=== PATIENT | male | born 1975 | race Asian ===

== ENCOUNTER 2017-03-18 13:13 | Inpatient (IN) | payer MEDICAID ==
[2017-03-18] VITALS (11 sets, daily range): BP systolic 129–155; BP diastolic 72–108
[~2017-03-18] VITALS: Ht 165.1 cm; Wt 84.3 kg
[2017-03-18 14:25] LABS: BASOPHILS # (AUTO) 0.02 K/uL (0.00-0.20); BASOPHILS % (AUTO) 0.3 % (0.0-2.0); EOSINOPHILS # (AUTO) 0.21 K/uL (0.00-0.70); EOSINOPHILS % (AUTO) 2.89 % (1.0-6.0); LYMPHOCYTES # (AUTO) 1.8 K/uL (1.0-4.8); LYMPHOCYTES % (AUTO) 25.4 % (22.0-44.0); MEAN CORPUSCULAR HEMOGLOBIN 16.8 pg (26.0-34.0); MEAN CORPUSCULAR HGB CONC 28.1 G/dL (31.0-37.0); MEAN CORPUSCULAR VOLUME 60 fL (80-100); MONOCYTES # (AUTO) 0.4 K/uL (0.1-1.0); MONOCYTES % (AUTO) 5.8 % (2.0-9.0); NEUTROPHILS # (AUTO) 4.7 K/uL (1.8-7.7); NEUTROPHILS % (AUTO) 65.7 % (40.0-70.0); PLATELET COUNT (AUTO) 625 K/uL (150-450); RED BLOOD CELL COUNT(AUTO) 2.85 MIL/uL (4.50-5.90); RED CELL DISTRIBUTION WIDTH 28.7 % (11.5-14.5); WHITE BLOOD COUNT (AUTO) 7.2 K/uL (4.5-11.0)
[2017-03-18 14:33] LABS: CALCIUM, TOTAL 8.5 mg/dL (8.8-10.5); CREATININE 1.36 mg/dL (0.60-1.30); POTASSIUM 3.5 mmol/L (3.5-5.1)
[2017-03-18 14:37] LABS: HEMATOCRIT 17.1 % (41-53); HEMOGLOBIN 4.8 g/dL (13.5-17.5)
[2017-03-18 14:38] LABS: ALBUMIN 3.4 g/dL (3.4-5.0); BILIRUBIN,TOTAL 0.3 mg/dL (0.1-1.0); TOTAL PROTEIN, SERUM 7.5 g/dL (6.4-8.2)
[2017-03-18] MEDS ORDERED: SODIUM CHLORIDE 0.9% 500 ML IV ONE (14:57)
[2017-03-18 14:59] LABS: APPEARANCE,URINE CLEAR (CLEAR); GLUCOSE, URINE (UA) NEGATIVE (NEGATIVE); KETONES,URINE NEGATIVE (NEGATIVE); LEUKOCYTE ESTERASE ,URINE NEGATIVE (NEGATIVE); OCCULT BLOOD,URINE NEGATIVE (NEGATIVE); PH,URINE 5.5 (5.0-8.0); PROTEIN,URINE POS 1+ (NEGATIVE)
[2017-03-18 15:02] LABS: ADD UA MICROSCOPIC NO
[2017-03-18 15:02] LABS: INR 1.1 (0.9-1.1); PROTHROMBIN TIME 11.3 SEC (9.4-11.6)
[2017-03-18 15:47] LABS: RBC MORPHOLOGY COMMENT ABNORMAL RBC MORPH
[2017-03-18] MEDS ORDERED: PANTOPRAZOLE SODIUM 80 MG in SODIUM CHLORIDE 0.9% 50 ML IV ONE (16:00)
[2017-03-18] MEDS ORDERED: PANTOPRAZOLE SODIUM 80 MG in SODIUM CHLORIDE 0.9% 500 ML IV SCH (16:00)
[2017-03-18] MEDS ORDERED: ACETAMINOPHEN 325 MG TABLET PO PRN (18:30)
[2017-03-18] MEDS ORDERED: 0.9% SODIUM CHLORIDE 10 ML SYRINGE IVP PRN (18:30)
[2017-03-18] MEDS ORDERED: ONDANSETRON HCL 4 MG/2 ML VIAL IVP PRN ×2 (18:30→21:45)
[2017-03-18] MEDS ORDERED: OxyCODONE HCL/ACETAMINOPHEN 5-325 MG TABLET PO PRN (21:45)
[2017-03-18] MEDS ORDERED: SODIUM CHLORIDE 0.9% 250 ML IV ONE (22:30)
[2017-03-19] VITALS (25 sets, daily range): BP systolic 103–190; BP diastolic 58–115
[2017-03-19] MEDS ORDERED: SODIUM CHLORIDE 0.9% 250 ML IV ONE ×2 (02:57→20:53)
[2017-03-19 06:48] LABS: BASOPHILS % (AUTO) 0.9 % (0.0-2.0); EOSINOPHILS % (AUTO) 4.4 % (1.0-6.0); HEMATOCRIT 24.6 % (41-53); HEMOGLOBIN 7.2 g/dL (13.5-17.5); LYMPHOCYTES # (AUTO) 1.9 K/uL (1.0-4.8); LYMPHOCYTES % (AUTO) 20.9 % (22.0-44.0); MEAN CORPUSCULAR HEMOGLOBIN 19.7 pg (26.0-34.0); MEAN CORPUSCULAR HGB CONC 29.2 G/dL (31.0-37.0); MEAN CORPUSCULAR VOLUME 67 fL (80-100); MONOCYTES # (AUTO) 0.8 K/uL (0.1-1.0); NEUTROPHILS # (AUTO) 5.8 K/uL (1.8-7.7); NEUTROPHILS % (AUTO) 64.8 % (40.0-70.0); PLATELET COUNT (AUTO) 582 K/uL (150-450); RED BLOOD CELL COUNT(AUTO) 3.66 MIL/uL (4.50-5.90); RED CELL DISTRIBUTION WIDTH 33.2 % (11.5-14.5); WHITE BLOOD COUNT (AUTO) 8.9 K/uL (4.5-11.0)
[2017-03-19 07:07] LABS: ALANINE AMINOTRANSFERASE 22 U/L (12-78); ALBUMIN 3.2 g/dL (3.4-5.0); ANION GAP 11 mmol/L (8-16); ASPARTATE AMINOTRANSFERASE 20 U/L (15-37); BILIRUBIN,TOTAL 1.4 mg/dL (0.1-1.0); CALCIUM, TOTAL 8.1 mg/dL (8.8-10.5); CARBON DIOXIDE 23 mmol/L (22-29); CHLORIDE 103 mmol/L (98-107); CREATININE 1.22 mg/dL (0.60-1.30); GLOMERULAR FILTR. RATE CALC > 60 mL/min (>60); POTASSIUM 3.9 mmol/L (3.5-5.1); SODIUM SERUM 137 mmol/L (136-145); TOTAL PROTEIN, SERUM 6.9 g/dL (6.4-8.2); UREA NITROGEN, BLOOD 10 mg/dL (7-18)
[2017-03-19] MEDS: PANTOPRAZOLE SODIUM 40 MG/VIAL IVP SCH ×2 (08:11→20:48)
[2017-03-19] MEDS: DOCUSATE SODIUM 100 MG CAPSULE PO SCH ×2 (08:12→20:48)
[2017-03-19] MEDS ORDERED: LORazepam 1 MG TABLET PO PRN (20:45)
[2017-03-19] MEDS ORDERED: AmLODIPine BESYLATE 10 MG TABLET PO ONE (20:45)
[2017-03-19] MEDS: ACETAMINOPHEN 325 MG TABLET PO PRN (20:48)
[2017-03-19] MEDS: SOD FERRIC GLUC COMPLX/SUCROSE 125 MG in SODIUM CHLORIDE 0.9% 100 ML IV SCH (20:48)
[2017-03-20] VITALS (7 sets, daily range): BP systolic 116–169; BP diastolic 78–101
[2017-03-20] MEDS ORDERED: LIDOCAINE HCL/PF 2% 5 ML VIAL IM ONE (05:23)
[2017-03-20] MEDS ORDERED: PROPOFOL 1% 20 ML VIAL IVP ONE (05:23)
[2017-03-20] MEDS ORDERED: SODIUM CHLORIDE 0.9% 1,000 ML IV ONE (07:30)
[2017-03-20] MEDS ORDERED: SODIUM TETRADECYL SULFATE 3% 60 MG/2 ML VIAL IVP ONE (07:30)
[2017-03-20] MEDS ORDERED: EPINEPHrine 1:10,000 [1 MG/10 ML] SYRINGE ONE (07:30)
[2017-03-20] MEDS ORDERED: FUROSEMIDE 40 MG/4 ML VIAL ONE (08:11)
[2017-03-20 08:26] LABS: ABG A-A DIFF O2 120.4 mmHg (10-20.0); ABG BASE EXCESS 0.9 mmol/L (-2.0-3.0); ABG HCO3 25.4 mmol/L (22.0-26.0); ABG OXYHEMOGLOBIN 91.8 % (94.0-100.0); ABG PCO2 35 mmHg (35-45); ABG PH 7.463 (7.35-7.450); ALLEN TEST, BLOOD GAS Positive; TEMPERATURE, FAHRENHEIT, BG 99.3 FAHREN (96.0-98.6)
[2017-03-20] MEDS: PANTOPRAZOLE SODIUM 40 MG/VIAL IVP SCH ×2 (09:51→20:09)
[2017-03-20] MEDS: DOCUSATE SODIUM 100 MG CAPSULE PO SCH ×2 (09:51→20:09)
[2017-03-20] MEDS: AmLODIPine BESYLATE 10 MG TABLET PO SCH (09:51)
[2017-03-20] MEDS ORDERED: SODIUM CHLORIDE 3% 15 ML NEB SOLUTION NEB ONE (16:15)
[2017-03-20] MEDS: SOD FERRIC GLUC COMPLX/SUCROSE 125 MG in SODIUM CHLORIDE 0.9% 100 ML IV SCH (20:09)
[2017-03-20] MEDS: ACETAMINOPHEN 325 MG TABLET PO PRN (20:17)
[2017-03-21] VITALS (7 sets, daily range): BP systolic 136–154; BP diastolic 79–99
[2017-03-21 06:48] LABS: HEMATOCRIT 30.2 % (41-53); HEMOGLOBIN 8.9 g/dL (13.5-17.5); MEAN CORPUSCULAR HEMOGLOBIN 20.2 pg (26.0-34.0); MEAN CORPUSCULAR HGB CONC 29.7 G/dL (31.0-37.0); MEAN CORPUSCULAR VOLUME 68 fL (80-100); PLATELET COUNT (AUTO) 608 K/uL (150-450); RED BLOOD CELL COUNT(AUTO) 4.42 MIL/uL (4.50-5.90); RED CELL DISTRIBUTION WIDTH 34.9 % (11.5-14.5); WHITE BLOOD COUNT (AUTO) 8.8 K/uL (4.5-11.0)
[2017-03-21 07:47] LABS: ANION GAP 11 mmol/L (8-16); CALCIUM, TOTAL 8.3 mg/dL (8.8-10.5); CARBON DIOXIDE 26 mmol/L (22-29); CHLORIDE 105 mmol/L (98-107); CREATININE 1.06 mg/dL (0.60-1.30); GLOMERULAR FILTR. RATE CALC > 60 mL/min (>60); POTASSIUM 3.2 mmol/L (3.5-5.1); SODIUM SERUM 142 mmol/L (136-145); UREA NITROGEN, BLOOD 8 mg/dL (7-18)
[2017-03-21] MEDS: PANTOPRAZOLE SODIUM 40 MG/VIAL IVP SCH ×2 (09:09→20:36)
[2017-03-21] MEDS: AmLODIPine BESYLATE 10 MG TABLET PO SCH (09:09)
[2017-03-21] MEDS: DOCUSATE SODIUM 100 MG CAPSULE PO SCH ×2 (09:09→20:36)
[2017-03-21 10:37] LABS: BAND NEUTROPHILS % (MANUAL) 1 % (1-5); EOSINOPHILS % (MANUAL) 2 % (1-6); LYMPHOCYTES % (MANUAL) 18 % (22-44); TOTAL CELLS COUNTED 100
[2017-03-21 10:42] LABS: RBC MORPHOLOGY COMMENT ABNORMAL R
[2017-03-21] MEDS ORDERED: POTASSIUM CHL 10 MEQ/WATER 50 ML IV PRN (12:00)
[2017-03-21] MEDS ORDERED: POTASSIUM CHLORIDE 20 MEQ ER TABLET PO PRN (12:00)
[2017-03-21] MEDS: SOD FERRIC GLUC COMPLX/SUCROSE 125 MG in SODIUM CHLORIDE 0.9% 100 ML IV SCH (20:36)
[2017-03-22 04:48] VITALS: BP 151/95
[2017-03-22 07:53] VITALS: BP 138/95
[2017-03-22] MEDS: DOCUSATE SODIUM 100 MG CAPSULE PO SCH ×2 (09:00→20:21)
[2017-03-22] MEDS: AmLODIPine BESYLATE 10 MG TABLET PO SCH (09:24)
[2017-03-22] MEDS: PANTOPRAZOLE SODIUM 40 MG/VIAL IVP SCH ×2 (09:24→20:20)
[2017-03-22 11:31] VITALS: BP 132/91
[2017-03-22 15:48] VITALS: BP 137/98
[2017-03-22 19:34] VITALS: BP 154/91
[2017-03-22] MEDS: SOD FERRIC GLUC COMPLX/SUCROSE 125 MG in SODIUM CHLORIDE 0.9% 100 ML IV SCH (20:21)
[2017-03-22 23:24] VITALS: BP 157/102
[2017-03-23] MEDS ORDERED: CloNIDine HCL 0.1 MG TABLET PO PRN
[2017-03-23 04:48] VITALS: BP 136/93
[2017-03-23 07:40] VITALS: BP 134/98
[2017-03-23] MEDS: PANTOPRAZOLE SODIUM 40 MG/VIAL IVP SCH (07:44)
[2017-03-23] MEDS: AmLODIPine BESYLATE 10 MG TABLET PO SCH (07:44)
[2017-03-23] MEDS: DOCUSATE SODIUM 100 MG CAPSULE PO SCH (07:44)
[2017-03-23 11:32] VITALS: BP 141/93
[2017-03-23 16:18] VITALS: BP 129/90
[2017-03-23] MEDS ORDERED: AMLO-512 PO (16:39)
[2017-03-23] MEDS ORDERED: ALBU8HFA IH (16:39)
== END 2017-03-23 17:35 | disposition home or self-care (01) | DRG 663 ==
LOC: EMS 13:15 → 5N 19:00 → 6N 03-19 16:10
PROVIDERS: ADMIT Internal Medicine; ATTEND Internal Medicine
PROC: 30233N1 Transfusion of Nonautologous Red Blood Cells into Peripheral Vein, Percutaneous Approach (ICD-10-PCS; 2017-03-18)
PROC: 0DB68ZX Excision of Stomach, Via Natural or Artificial Opening Endoscopic, Diagnostic (ICD-10-PCS; 2017-03-20)
PROC: 0DB98ZX Excision of Duodenum, Via Natural or Artificial Opening Endoscopic, Diagnostic (ICD-10-PCS; principal; 2017-03-20 08:30)
DX: D50.9 Iron deficiency anemia, unspecified (principal); N17.9 Acute kidney failure, unspecified; K26.9 Duodenal ulcer, unspecified as acute or chronic, without hemorrhage or perforation; R16.0 Hepatomegaly, not elsewhere classified; K29.70 Gastritis, unspecified, without bleeding; F17.210 Nicotine dependence, cigarettes, uncomplicated; F41.9 Anxiety disorder, unspecified; K40.20 Bilateral inguinal hernia, without obstruction or gangrene, not specified as recurrent; K42.9 Umbilical hernia without obstruction or gangrene; K57.30 Diverticulosis of large intestine without perforation or abscess without bleeding; M47.814 Spondylosis without myelopathy or radiculopathy, thoracic region; I70.90 Unspecified atherosclerosis; R53.81 Other malaise; F12.10 Cannabis abuse, uncomplicated; F15.10 Other stimulant abuse, uncomplicated; K25.9 Gastric ulcer, unspecified as acute or chronic, without hemorrhage or perforation; K29.80 Duodenitis without bleeding; F14.10 Cocaine abuse, uncomplicated; Z71.51 Drug abuse counseling and surveillance of drug abuser; Z91.19 Patient's noncompliance with other medical treatment and regimen
CPT/HCPCS: 74176; 82271; 82805; 84132; 86850; 86900; 86901; 86920; 87015; 87149; 88305; 88312; 88342; 93005; 93306; 94640; 96365; 96366; 96375; 99285; C9113; J0171; J1940; J2704; J2916; J3490; J7030; J7040; J7050; P9016

== ENCOUNTER 2019-12-21 19:03 | Inpatient (IN) | payer MEDICAID, OTHER ==
[~2019-12-21] VITALS: Ht 165.1 cm; Wt 83.2 kg
[~2019-12-21 19:03] MED LIST: ALBU8HFA IH; AMLO10TA7 PO
[2019-12-21 20:16] LABS: BASOPHILS % (AUTO) 0.7 % (0.0-2.0); EOSINOPHILS % (AUTO) 0.3 % (1.0-6.0); HEMATOCRIT 53.8 % (41-53); HEMOGLOBIN 17.7 g/dL (13.5-17.5); LYMPHOCYTES # (AUTO) 1.3 K/uL (1.0-4.8); MEAN CORPUSCULAR HEMOGLOBIN 27.1 pg (26.0-34.0); MEAN CORPUSCULAR HGB CONC 32.9 G/dL (31.0-37.0); MEAN CORPUSCULAR VOLUME 83 fL (80-100); MONOCYTES # (AUTO) 0.6 K/uL (0.1-1.0); MONOCYTES % (AUTO) 5.9 % (2.0-9.0); NEUTROPHILS # (AUTO) 8.7 K/uL (1.8-7.7); NEUTROPHILS % (AUTO) 81.1 % (40.0-70.0); PLATELET COUNT (AUTO) 407 K/uL (150-450); RED BLOOD CELL COUNT(AUTO) 6.52 MIL/uL (4.50-5.90); RED CELL DISTRIBUTION WIDTH 13.9 % (11.5-14.5)
[2019-12-21 20:22] LABS: ANION GAP 9 mmol/L (8-16); CALCIUM, TOTAL 8.4 mg/dL (8.8-10.5); CARBON DIOXIDE 26 mmol/L (22-29); CHLORIDE 101 mmol/L (98-107); CREATININE 1.34 mg/dL (0.60-1.30); GLOMERULAR FILTR. RATE CALC 57 mL/min (>60); GLUCOSE,RANDOM 147 mg/dL (70-110); POTASSIUM 3.3 mmol/L (3.5-5.1); SODIUM SERUM 136 mmol/L (136-145); UREA NITROGEN, BLOOD 18 mg/dL (7-18)
[2019-12-21 20:28] LABS: ALANINE AMINOTRANSFERASE 66 U/L (12-78); ALBUMIN 3.5 g/dL (3.4-5.0); ALKALINE PHOSPHATASE 70 U/L (46-116); ASPARTATE AMINOTRANSFERASE 31 U/L (15-37); BILIRUBIN,TOTAL 0.3 mg/dL (0.1-1.0); TOTAL PROTEIN, SERUM 6.6 g/dL (6.4-8.2)
[2019-12-21 20:33] LABS: AMPHET/METH SCREEN,URINE POSITIVE (NEGATIVE); BARBITURATE SCREEN, URINE NEGATIVE (NEGATIVE); BENZODIAZEPINES SCREEN,URINE NEGATIVE (NEGATIVE); CANNABINOID SCREEN,URINE POSITIVE (NEGATIVE); COCAINE SCREEN,URINE NEGATIVE (NEGATIVE); METHADONE SCREEN, URINE NEGATIVE (NEGATIVE); OPIATE SCREEN,URINE NEGATIVE (NEGATIVE)
[2019-12-21 20:36] LABS: PHENCYCLIDINE SCREEN,URINE POSITIVE (NEGATIVE)
[2019-12-21] MEDS ORDERED: HALOPERIDOL LACTATE 5 MG/ML VIAL ONE (21:19)
[2019-12-21] MEDS ORDERED: LORazepam 2 MG/ML VIAL ONE (21:19)
[2019-12-21] MEDS ORDERED: LORazepam 2 MG/ML VIAL IM ONE (21:30)
[2019-12-21] MEDS ORDERED: HALOPERIDOL LACTATE 5 MG/ML VIAL IM ONE (21:30)
[2019-12-21] MEDS ORDERED: POTASSIUM CHLORIDE 10% 40 MEQ/30 ML LIQUID UDCUP PO ONE (21:45)
[2019-12-21] MEDS ORDERED: HALOPERIDOL 5 MG TABLET PO PRN (21:45)
[2019-12-22 03:00] VITALS: BP 141/83
[2019-12-22] MEDS ORDERED: INFLUENZA VIRUS VACCINE QVS 2019-20 (3YR+)/PF 60 MCG/0.5 ML SYRINGE IM ONE (03:15)
[2019-12-22] MEDS ORDERED: PETROLATUM,WHITE 28 GM JELLY TP PRN (06:15)
[2019-12-22] MEDS ORDERED: LOPERAMIDE HCL 2 MG CAPSULE PO PRN (06:15)
[2019-12-22] MEDS ORDERED: NICOTINE 14 MG/24 HOUR PATCH TD PRN (06:15)
[2019-12-22] MEDS ORDERED: MAGNESIUM HYDROXIDE SUSPENSION 30 ML UDCUP PO PRN (06:15)
[2019-12-22] MEDS ORDERED: MAG HYDROX/AL HYDROX/SIMETH ES 30 ML SUSPENSION UDCUP PO PRN (06:15)
[2019-12-22] MEDS ORDERED: ACETAMINOPHEN 325 MG TABLET PO PRN (06:15)
[2019-12-22] MEDS ORDERED: DOCUSATE SODIUM 100 MG CAPSULE PO PRN (06:15)
[2019-12-22] MEDS ORDERED: GuaiFENesin/D-METHORPHAN [SUGAR-FREE] 200-20MG/10 ML SYRUP UDCUP PO PRN (06:15)
[2019-12-22] MEDS ORDERED: IBUPROFEN 400 MG TABLET PO PRN (06:15)
[2019-12-22] MEDS ORDERED: ONDANSETRON HCL 4 MG TABLET PO PRN (06:15)
[2019-12-22] MEDS ORDERED: ALBUTEROL SULFATE HFA 90 MCG/PUFF 8 GM INHALER IH PRN (06:15)
[2019-12-22 07:48] LABS: CHOL/HDL RATIO 6.5 (4.2-7.3)
[2019-12-22] MEDS: BACITRACIN 28.4 GM OINTMENT TP SCH ×2 (09:51→16:57)
[2019-12-22 13:17] VITALS: BP 170/107
[2019-12-22] MEDS: CloNIDine HCL 0.1 MG TABLET PO PRN (13:27)
[2019-12-22 17:09] VITALS: BP 140/96
[2019-12-23 05:50] VITALS: BP 172/110
[2019-12-23] MEDS: CloNIDine HCL 0.1 MG TABLET PO PRN (05:56)
[2019-12-23 06:38] LABS: BASOPHILS % (AUTO) 0.8 % (0.0-2.0); EOSINOPHILS % (AUTO) 1.1 % (1.0-6.0); HEMOGLOBIN 17.7 g/dL (13.5-17.5); LYMPHOCYTES # (AUTO) 1.8 K/uL (1.0-4.8); LYMPHOCYTES % (AUTO) 17.7 % (22.0-44.0); MEAN CORPUSCULAR HEMOGLOBIN 26.8 pg (26.0-34.0); MEAN CORPUSCULAR VOLUME 84 fL (80-100); MONOCYTES # (AUTO) 0.8 K/uL (0.1-1.0); MONOCYTES % (AUTO) 8.2 % (2.0-9.0); NEUTROPHILS # (AUTO) 7.4 K/uL (1.8-7.7); NEUTROPHILS % (AUTO) 72.2 % (40.0-70.0); PLATELET COUNT (AUTO) 374 K/uL (150-450); RED BLOOD CELL COUNT(AUTO) 6.61 MIL/uL (4.50-5.90)
[2019-12-23 06:44] LABS: HEMATOCRIT 55.2 % (41-53)
[2019-12-23 06:55] VITALS: BP 161/80
[2019-12-23 07:08] LABS: HEMOGLOBIN A1C 6.1 % (4.5-6.2)
[2019-12-23 07:12] LABS: ALANINE AMINOTRANSFERASE 61 U/L (12-78); ALBUMIN 3.1 g/dL (3.4-5.0); ALKALINE PHOSPHATASE 72 U/L (46-116); ANION GAP 6 mmol/L (8-16); ASPARTATE AMINOTRANSFERASE 34 U/L (15-37); BILIRUBIN,TOTAL 0.6 mg/dL (0.1-1.0); CALCIUM, TOTAL 8.1 mg/dL (8.8-10.5); CARBON DIOXIDE 29 mmol/L (22-29); CHLORIDE 105 mmol/L (98-107); CHOL/HDL RATIO 6.4 (4.2-7.3); CHOLESTEROL 229 mg/dL (131-200); GLOMERULAR FILTR. RATE CALC > 60 mL/min (>60); GLUCOSE,RANDOM 108 mg/dL (70-110); HDL CHOLESTEROL 36 mg/dL (40-60); LDL CHOL (CALC.) 159 mg/dL (0-130); POTASSIUM 4.3 mmol/L (3.5-5.1); SODIUM SERUM 140 mmol/L (136-145); THYROID STIMULATING HORMONE 2.66 uIU/mL (0.36-3.74); TOTAL PROTEIN, SERUM 5.9 g/dL (6.4-8.2); TRIGLYCERIDES 170 mg/dL (15-150); UREA NITROGEN, BLOOD 12 mg/dL (7-18)
[2019-12-23 08:00] VITALS: BP 145/100
[2019-12-23] MEDS: AmLODIPine BESYLATE 10 MG TABLET PO SCH (08:17)
[2019-12-23] MEDS: BACITRACIN 28.4 GM OINTMENT TP SCH ×2 (08:17→17:17)
[2019-12-23] MEDS: LORazepam 2 MG TABLET PO PRN ×2 (08:17→15:44)
[2019-12-23 09:00] VITALS: BP 138/88
[2019-12-23 16:42] VITALS: BP 139/84
[2019-12-23] MEDS: ZOLPIDEM TARTRATE 10 MG TABLET PO PRN (20:46)
[2019-12-24 07:10] VITALS: BP 132/86
[2019-12-24 08:00] VITALS: BP 145/100
[2019-12-24] MEDS: AmLODIPine BESYLATE 10 MG TABLET PO SCH (08:25)
[2019-12-24] MEDS: BACITRACIN 28.4 GM OINTMENT TP SCH ×2 (08:26→17:10)
[2019-12-24 17:28] VITALS: BP 159/103
[2019-12-25 07:06] VITALS: BP 149/92
[2019-12-25] MEDS: AmLODIPine BESYLATE 10 MG TABLET PO SCH (09:06)
[2019-12-25] MEDS: BACITRACIN 28.4 GM OINTMENT TP SCH ×2 (09:06→17:03)
[2019-12-25 13:09] VITALS: BP 132/87
[2019-12-25 16:52] VITALS: BP 140/91
[2019-12-25] MEDS: LORazepam 2 MG TABLET PO PRN (18:15)
[2019-12-25] MEDS: ZOLPIDEM TARTRATE 10 MG TABLET PO PRN (20:42)
[2019-12-26 05:38] VITALS: BP 142/93
[2019-12-26 08:47] VITALS: BP 151/87
[2019-12-26] MEDS: BACITRACIN 28.4 GM OINTMENT TP SCH (08:54)
[2019-12-26] MEDS: AmLODIPine BESYLATE 10 MG TABLET PO SCH (08:54)
== END 2019-12-26 21:05 | disposition home or self-care (01) | DRG 750 ==
LOC: EMS 19:05 → B3A 12-22 00:42
PROVIDERS: ADMIT Psychiatry & Neurology Psychiatry; ATTEND Psychiatry & Neurology Child & Adolescent Psychiatry
DX: F25.9 Schizoaffective disorder, unspecified (principal); E78.5 Hyperlipidemia, unspecified; E87.6 Hypokalemia; F10.10 Alcohol abuse, uncomplicated; F14.90 Cocaine use, unspecified, uncomplicated; F15.10 Other stimulant abuse, uncomplicated; F16.10 Hallucinogen abuse, uncomplicated; I10 Essential (primary) hypertension; J45.909 Unspecified asthma, uncomplicated; K27.9 Peptic ulcer, site unspecified, unspecified as acute or chronic, without hemorrhage or perforation; S60.221A Contusion of right hand, initial encounter; F17.210 Nicotine dependence, cigarettes, uncomplicated; S60.222A Contusion of left hand, initial encounter; X58.XXXA Exposure to other specified factors, initial encounter; Z82.49 Family history of ischemic heart disease and other diseases of the circulatory system; Z87.11 Personal history of peptic ulcer disease; Y93.89 Activity, other specified; Y92.89 Other specified places as the place of occurrence of the external cause; Y99.8 Other external cause status; Z79.899 Other long term (current) drug therapy
CPT/HCPCS: 83036; 84443; 99291; G0480; J1630; J2060

== ENCOUNTER 2020-01-19 16:56 | Inpatient (IN) | payer MEDICAID ==
[~2020-01-19] VITALS: Ht 162.6 cm; Wt 80.3 kg
[2020-01-19] MEDS ORDERED: LORazepam 2 MG TABLET PO PRN (22:45)
[2020-01-19] MEDS ORDERED: HALOPERIDOL 5 MG TABLET PO PRN (22:45)
[2020-01-19] MEDS ORDERED: ZOLPIDEM TARTRATE 10 MG TABLET PO PRN (22:45)
[2020-01-20] MEDS ORDERED: METO-558 PO (00:06)
[2020-01-20] MEDS ORDERED: AMLO-519 PO (00:06)
[2020-01-20] MEDS ORDERED: OLAN5TAB2 PO (00:06)
[2020-01-20] MEDS ORDERED: HYDR25TA84 PO (00:06)
[2020-01-20] MEDS ORDERED: BUPR-93 PO (00:06)
[2020-01-20] MEDS ORDERED: ASPI-1227 PO (00:06)
[2020-01-20 00:14] VITALS: BP 171/102
[2020-01-20 00:51] VITALS: BP 144/87
[2020-01-20] MEDS ORDERED: PNEUMOCOCCAL VACCINE POLYVALENT 0.5 ML VIAL [PPSV23] IM ONE (01:15)
[2020-01-20] MEDS ORDERED: INFLUENZA VIRUS VACCINE QVS 2019-20 (3YR+)/PF 60 MCG/0.5 ML SYRINGE IM ONE (01:15)
[2020-01-20 01:32] VITALS: BP 106/66
[2020-01-20 03:37] VITALS: BP 110/70
[2020-01-20 04:42] VITALS: BP 108/68
[2020-01-20 07:17] LABS: EOSINOPHILS % (AUTO) 1.3 % (1.0-6.0); HEMOGLOBIN 17.9 g/dL (13.5-17.5); LYMPHOCYTES # (AUTO) 2.6 K/uL (1.0-4.8); MEAN CORPUSCULAR HEMOGLOBIN 26.6 pg (26.0-34.0); MEAN CORPUSCULAR HGB CONC 31.9 G/dL (31.0-37.0); MEAN CORPUSCULAR VOLUME 83 fL (80-100); MONOCYTES % (AUTO) 8.9 % (2.0-9.0); NEUTROPHILS # (AUTO) 7.8 K/uL (1.8-7.7); NEUTROPHILS % (AUTO) 66.8 % (40.0-70.0); PLATELET COUNT (AUTO) 406 K/uL (150-450); RED BLOOD CELL COUNT(AUTO) 6.74 MIL/uL (4.50-5.90); RED CELL DISTRIBUTION WIDTH 14.5 % (11.5-14.5)
[2020-01-20 07:28] LABS: HEMATOCRIT 56.1 % (41-53)
[2020-01-20 07:51] LABS: ALANINE AMINOTRANSFERASE 41 U/L (12-78); ALBUMIN 3.3 g/dL (3.4-5.0); ALKALINE PHOSPHATASE 97 U/L (46-116); ANION GAP 8 mmol/L (8-16); ASPARTATE AMINOTRANSFERASE 22 U/L (15-37); BILIRUBIN,TOTAL 0.6 mg/dL (0.1-1.0); CALCIUM, TOTAL 9.1 mg/dL (8.8-10.5); CARBON DIOXIDE 27 mmol/L (22-29); CHLORIDE 102 mmol/L (98-107); CHOL/HDL RATIO 6.4 (4.2-7.3); CHOLESTEROL 205 mg/dL (131-200); CREATININE 1.07 mg/dL (0.60-1.30); FREE T4 (FREE THYROXINE) 1.28 ng/dL (0.76-1.46); GLOMERULAR FILTR. RATE CALC > 60 mL/min (>60); GLUCOSE,RANDOM 99 mg/dL (70-110); HDL CHOLESTEROL 32 mg/dL (40-60); LDL CHOL (CALC.) 131 mg/dL (0-130); POTASSIUM 3.9 mmol/L (3.5-5.1); SODIUM SERUM 137 mmol/L (136-145); THYROID STIMULATING HORMONE 1.96 uIU/mL (0.36-3.74); TOTAL PROTEIN, SERUM 6.1 g/dL (6.4-8.2); TRIGLYCERIDES 210 mg/dL (15-150); UREA NITROGEN, BLOOD 18 mg/dL (7-18)
[2020-01-20 08:00] VITALS: BP 128/87
[2020-01-20] MEDS ORDERED: NICOTINE 14 MG/24 HOUR PATCH TD PRN (09:15)
[2020-01-20] MEDS ORDERED: DOCUSATE SODIUM 100 MG CAPSULE PO PRN (09:15)
[2020-01-20] MEDS ORDERED: GuaiFENesin/D-METHORPHAN [SUGAR-FREE] 200-20MG/10 ML SYRUP UDCUP PO PRN (09:15)
[2020-01-20] MEDS ORDERED: CloNIDine HCL 0.1 MG TABLET PO PRN (09:15)
[2020-01-20] MEDS ORDERED: ALBUTEROL SULFATE HFA 90 MCG/PUFF 8 GM INHALER IH PRN (09:15)
[2020-01-20] MEDS ORDERED: MAG HYDROX/AL HYDROX/SIMETH ES 30 ML SUSPENSION UDCUP PO PRN (09:15)
[2020-01-20] MEDS ORDERED: IBUPROFEN 400 MG TABLET PO PRN (09:15)
[2020-01-20] MEDS ORDERED: PETROLATUM,WHITE 28 GM JELLY TP PRN (09:15)
[2020-01-20] MEDS ORDERED: ACETAMINOPHEN 325 MG TABLET PO PRN (09:15)
[2020-01-20] MEDS ORDERED: MAGNESIUM HYDROXIDE SUSPENSION 30 ML UDCUP PO PRN (09:15)
[2020-01-20] MEDS ORDERED: LOPERAMIDE HCL 2 MG CAPSULE PO PRN (09:15)
[2020-01-20] MEDS ORDERED: ONDANSETRON HCL 4 MG TABLET PO PRN (09:15)
[2020-01-20] MEDS: HydrALAZINE HCL 25 MG TABLET PO SCH ×2 (12:22→16:27)
[2020-01-20] MEDS: AmLODIPine BESYLATE 10 MG TABLET PO SCH (12:22)
[2020-01-20] MEDS: METOPROLOL TARTRATE 25 MG TABLET PO SCH ×2 (12:23→16:27)
[2020-01-20] MEDS: HydrOXYzine PAMOATE 50 MG CAPSULE PO SCH (16:27)
[2020-01-21 00:13] VITALS: BP 114/68
[2020-01-21 06:14] VITALS: BP 124/80
[2020-01-21] MEDS: AmLODIPine BESYLATE 10 MG TABLET PO SCH (08:34)
[2020-01-21] MEDS: HydrOXYzine PAMOATE 50 MG CAPSULE PO SCH ×2 (08:34→17:27)
[2020-01-21] MEDS: HydrALAZINE HCL 25 MG TABLET PO SCH ×2 (08:35→17:27)
[2020-01-21] MEDS: METOPROLOL TARTRATE 25 MG TABLET PO SCH ×2 (08:35→17:27)
[2020-01-21 08:47] VITALS: BP 144/102
[2020-01-21 09:35] VITALS: BP 139/77
[2020-01-21 16:03] VITALS: BP 135/90
[2020-01-22 06:14] VITALS: BP 136/68
[2020-01-22 08:17] VITALS: BP 140/94
[2020-01-22] MEDS: AmLODIPine BESYLATE 10 MG TABLET PO SCH (08:37)
[2020-01-22] MEDS: HydrOXYzine PAMOATE 50 MG CAPSULE PO SCH ×2 (08:37→17:16)
[2020-01-22] MEDS: HydrALAZINE HCL 25 MG TABLET PO SCH ×2 (08:37→17:16)
[2020-01-22] MEDS: METOPROLOL TARTRATE 25 MG TABLET PO SCH ×2 (08:37→17:17)
[2020-01-22 16:01] VITALS: BP 121/80
[2020-01-23 05:54] VITALS: BP 151/98
[2020-01-23 08:12] VITALS: BP 147/88
[2020-01-23] MEDS: HydrOXYzine PAMOATE 50 MG CAPSULE PO SCH (08:22)
[2020-01-23] MEDS: HydrALAZINE HCL 25 MG TABLET PO SCH (08:23)
[2020-01-23] MEDS: METOPROLOL TARTRATE 25 MG TABLET PO SCH (08:23)
[2020-01-23] MEDS: AmLODIPine BESYLATE 10 MG TABLET PO SCH (08:23)
[2020-01-23] MEDS ORDERED: METO25 PO (10:13)
[2020-01-23] MEDS ORDERED: AMLO10TA7 PO (10:14)
[2020-01-23] MEDS ORDERED: HYDR50CA9 PO (10:15)
[2020-01-23] MEDS ORDERED: HYDR25TA84 PO (10:17)
== END 2020-01-23 14:30 | disposition home or self-care (01) | DRG 751 ==
LOC: B3A 23:51
PROVIDERS: ADMIT Psychiatry & Neurology Psychiatry; ATTEND Psychiatry & Neurology Psychiatry
DX: F29 Unspecified psychosis not due to a substance or known physiological condition (principal); D72.829 Elevated white blood cell count, unspecified; E78.5 Hyperlipidemia, unspecified; F10.10 Alcohol abuse, uncomplicated; F15.10 Other stimulant abuse, uncomplicated; F16.10 Hallucinogen abuse, uncomplicated; F32.9 Major depressive disorder, single episode, unspecified; F41.9 Anxiety disorder, unspecified; I10 Essential (primary) hypertension; Z59.0 Homelessness; Z28.21 Immunization not carried out because of patient refusal
CPT/HCPCS: 84439; 84443; G0480